=== PATIENT | male | born 1955 | race Hispanic/Latino ===

== ENCOUNTER 2018-11-02 04:01 | Emergency (ER) | payer SELFPAY ==
[~2018-11-02] VITALS: Ht 172.7 cm; Wt 81.6 kg
[2018-11-02 04:30] LABS: BASOPHILS # (AUTO) 0.1 (0.0-0.1); EOSINOPHILS # (AUTO) 0.8 (0.0-0.4); EOSINOPHILS % 7.8 % (0.0-6.0); HEMATOCRIT 45.6 % (38.2-49.6); LYMPHOCYTES # (AUTO) 2.5 (1.0-3.2); LYMPHOCYTES % 23.7 % (18.0-39.1); MEAN CORPUSCULAR HEMOGLOBIN 29.4 pg (28-32); MEAN CORPUSCULAR HGB CONC 32.9 g/dL (31-35); MEAN CORPUSCULAR VOLUME 89.2 fL (81-99); MONOCYTES # (AUTO) 1.1 (0.2-0.8); MONOCYTES % 10.6 % (4.4-11.3); NEUTROPHILS # (AUTO) 5.9 (2.1-6.9); NEUTROPHILS % 56.6 % (38.7-80.0); PLATELET COUNT 185 x10e3/uL (140-360); RED BLOOD COUNT 5.11 x10e6/uL (4.3-5.7)
[2018-11-02] MEDS ORDERED: CLONIDINE HCL 0.1 MG TAB PO ONE (04:30)
[2018-11-02 04:46] LABS: ALANINE AMINOTRANSFERASE 17 IU/L (0-55); ALBUMIN 3.8 g/dL (3.5-5.0); ALBUMIN/GLOBULIN RATIO 1.1 (0.8-2.0); ALKALINE PHOSPHATASE 61 IU/L (40-150); ANION GAP 10.7 mmol/L (8-16); BLOOD UREA NITROGEN 17 mg/dL (7-26); BUN/CREATININE RATIO 16 (6-25); CALCIUM 8.8 mg/dL (8.4-10.2); CARBON DIOXIDE 30 mmol/L (22-29); CHLORIDE 99 mmol/L (98-107); CREATINE KINASE 96 IU/L (30-200); CREATININE, SERUM 1.07 mg/dL (0.72-1.25); EST GLOMERULAR FILTRATION RATE > 60 ML/MIN (60-); GLUCOSE 107 mg/dL (74-118); POTASSIUM 3.7 mmol/L (3.5-5.1); SODIUM 136 mmol/L (136-145)
--- NOTE | 2018-11-02 04:52 | Diagnostic Imaging Report ---
EXAMINATION: CHEST 2 VIEWS INDICATION: chest pain, cough COMPARISON: None FINDINGS: TUBES and LINES: None. LUNGS: Lungs are well inflated. Lungs are clear. There is no evidence of pneumonia or pulmonary edema. PLEURA: No pleural effusion or pneumothorax. HEART AND MEDIASTINUM: The cardiomediastinal silhouette is unremarkable. Tortuous thoracic aorta. BONES AND SOFT TISSUES: Anterior wedge deformity of T9 vertebral body suggesting compression fracture of uncertain age. UPPER ABDOMEN: No free air under the diaphragm. IMPRESSION: 1. No acute thoracic abnormality. 2. Anterior wedge deformity of T9 vertebral body suggesting compression fracture of uncertain age. Signed by: Dr. Rickey Angelo M.D. on 11/02/2018 4:48 AM
[2018-11-02 05:11] VITALS: BP 157/97
== END 2018-11-02 05:35 | disposition home or self-care (01) ==
LOC: ER 04:01
DX: R07.89 Other chest pain (principal); R05 Cough; J42 Unspecified chronic bronchitis; I10 Essential (primary) hypertension; F17.210 Nicotine dependence, cigarettes, uncomplicated
CPT/HCPCS: 36415; 71046; 80053; 82550; 82553; 84484; 85025; 93005; 99284

== ENCOUNTER → 2019-10-18 | Outpatient (CLI) | payer OTHER ==
[~2019-10-18] MED LIST: AMOXICILLIN250 MG PO; CLARITHROMYCIN500 MG PO; IOPAMIDOL 300MG/ML 100 ML INFUS..BTL IV ONE; LISINOPRIL10 MG PO; METOPROLOL TART50 MG PO; NICODERM CQ1 EAC1 TOP; PROTONIX40 MG/ML PO; TYLENOL # 31 EA PO; ZOFRAN4 MG PO
== END ==
LOC: DX 10:16
PROVIDERS: ATTEND Surgery
DX: K80.50 Calculus of bile duct without cholangitis or cholecystitis without obstruction (principal)
CPT/HCPCS: Q9967

== ENCOUNTER 2020-08-08 16:30 | Emergency (ER) | payer SELFPAY ==
[~2020-08-08] VITALS: Ht 172.7 cm; Wt 68.5 kg
[~2020-08-08 16:30] MED LIST changes: -IOPAMIDOL 300MG/ML 100 ML INFUS..BTL IV ONE
[2020-08-08] MEDS ORDERED: HYDRALAZINE HCL 20 MG/ML VIAL IV STA (16:50)
[2020-08-08 17:10] LABS: BASOPHILS # (AUTO) 0.1 (0.0-0.1); BASOPHILS % 0.8 % (0.0-1.0); EOSINOPHILS # (AUTO) 0.4 (0.0-0.4); EOSINOPHILS % 4.4 % (0.0-6.0); HEMATOCRIT 48.1 % (38.2-49.6); HEMOGLOBIN 15.8 g/dL (14.0-18.0); LYMPHOCYTES % 23.3 % (18.0-39.1); MEAN CORPUSCULAR HGB CONC 32.8 g/dL (31-35); MEAN CORPUSCULAR VOLUME 88.4 fL (81-99); MONOCYTES % 12.2 % (4.4-11.3); NEUTROPHILS % 58.9 % (38.7-80.0); PLATELET COUNT 208 x10e3/uL (140-360); RED BLOOD COUNT 5.44 x10e6/uL (4.3-5.7); RED CELL DISTRIBUTION WIDTH 12.9 % (11.7-14.4)
[2020-08-08 17:40] LABS: ALANINE AMINOTRANSFERASE 17 IU/L (0-55); ALBUMIN 4.1 g/dL (3.5-5.0); ALKALINE PHOSPHATASE 73 IU/L (40-150); ANION GAP 13.6 mmol/L (8-16); CALCIUM 9.1 mg/dL (8.4-10.2); CARBON DIOXIDE 25 mmol/L (22-29); CHLORIDE 103 mmol/L (98-107); CREATINE KINASE 97 IU/L (30-200); CREATININE, SERUM 1.03 mg/dL (0.72-1.25); EST GLOMERULAR FILTRATION RATE > 60 ML/MIN (60-); GLUCOSE 115 mg/dL (74-118); POTASSIUM 3.6 mmol/L (3.5-5.1); SODIUM 138 mmol/L (136-145)
[2020-08-08 17:53] LABS: ALBUMIN/GLOBULIN RATIO 1.1 (0.8-2.0); BLOOD UREA NITROGEN 15 mg/dL (7-26); BUN/CREATININE RATIO 14 (6-25)
[2020-08-08] MEDS ORDERED: SODIUM CHLORIDE 0.9% 100 ML ONE (18:14)
[2020-08-08] MEDS ORDERED: IOPAMIDOL 370 MG/ML 200 ML INFUS..BTL INJ ONE (18:14)
[2020-08-08 19:30] VITALS: BP 170/68
== END 2020-08-08 19:31 | disposition home or self-care (01) ==
LOC: ER 16:40
DX: H91.90 Unspecified hearing loss, unspecified ear (principal); I10 Essential (primary) hypertension; R42 Dizziness and giddiness; E78.5 Hyperlipidemia, unspecified; B19.20 Unspecified viral hepatitis C without hepatic coma; I25.2 Old myocardial infarction; Z95.5 Presence of coronary angioplasty implant and graft
CPT/HCPCS: 36415; 70496; 70498; 80053; 82550; 82553; 84484; 85025; 93005; 99284; J0360; J7050; Q9967

== ENCOUNTER 2020-10-13 17:23 | Emergency (ER) | payer OTHER ==
[~2020-10-13] VITALS: Ht 172.7 cm; Wt 68.5 kg
== END 2020-10-13 18:05 | disposition home or self-care (01) ==
LOC: ER 17:37
DX: R53.83 Other fatigue (principal); I10 Essential (primary) hypertension; E78.5 Hyperlipidemia, unspecified; B19.20 Unspecified viral hepatitis C without hepatic coma; I25.2 Old myocardial infarction; Z95.5 Presence of coronary angioplasty implant and graft
CPT/HCPCS: 93005; 99282

== ENCOUNTER 2021-03-25 18:45 | Emergency (ER) | payer OTHER ==
[~2021-03-25] VITALS: Ht 172.7 cm; Wt 68.5 kg
[2021-03-25] MEDS ORDERED: TROPICAMIDE 1% OPTH SOLN 3ML OP ONE (19:30)
[2021-03-25] MEDS ORDERED: FLUORESCEIN SOD(OPTH) 1 MG STRP OP ONE (19:30)
[2021-03-25] MEDS ORDERED: TETRACAINE HCL 0.5% OPTH SOLN 4 ML BTL ONE (19:34)
[2021-03-25] MEDS ORDERED: FLUORESCEIN SOD(OPTH) 1 MG STRP ONE (19:35)
[2021-03-25] MEDS ORDERED: EYE IRRIGATION (OPTH) 120 ML BTL ONE (19:35)
[2021-03-25] MEDS ORDERED: PATADAY2.5 ML OP (19:38)
== END 2021-03-25 21:45 | disposition home or self-care (01) ==
LOC: ER 19:24
DX: H10.11 Acute atopic conjunctivitis, right eye (principal)